=== PATIENT | female | born 1950 | race Caucasian/White ===

== ENCOUNTER 2022-11-28 12:57 | Emergency (ER) | payer MEDICARE, BC, SELFPAY ==
[2022-11-28 13:01] VITALS: BP 165/83; PULSE 77; RESP 14; TEMP 36.4; O2SAT 97; BMI 21.9
--- NOTE | 2022-11-28 13:10 | DI.US.S_ITS ---
PROCEDURE: US ABDOMEN LIMITED INDICATIONS: RUQ ABD PAIN TECHNIQUE: Real-time focused scanning was performed of the abdomen, with image documentation. COMPARISON: None. FINDINGS: There are small cysts in the liver. Liver echo pattern is unremarkable. Gallbladder is unremarkable with no stones or gallbladder wall thickening. No dilated ducts. Common duct measures 4 mm. Visualized portions the pancreas are unremarkable. IMPRESSION: Unremarkable right upper quadrant ultrasound with no gallstone disease noted. Dictated by: Raleigh Morris M.D. on 11/28/2022 at 13:58 Approved by: Raleigh Morris M.D. on 11/28/2022 at 13:59
[2022-11-28] MEDS: KETOROLAC 30 MG/ML VIAL 15 MG IV (13:13)
[2022-11-28 13:22] LABS: Add Manual Diff / Slide Review NO; Basophils Absolute Auto 0 /uL (0-100); Basophils Percent Auto 0.9 % (0-2); Eosinophils Absolute Auto 200 /uL (0-450); Eosinophils Percent Auto 4.1 % (2-4); Hematocrit 40.5 % (36-46); Hemoglobin 13.7 g/dL (12.0-16.0); Lymphocytes Absolute Auto 1500 /uL (1100-4500); Lymphocytes Percent Auto 28.3 % (25-40); Mean Corpuscular HGB Conc 33.9 % (30-36); Mean Corpuscular Hemoglobin 29.9 PG (26-34); Mean Corpuscular Volume 88.2 fL (80-100); Monocytes Absolute Auto 500 /uL (0-900); Monocytes Percent Auto 8.8 % (3-14); Neutrophils Absolute Auto 3100 /uL (1500-7000); Neutrophils Percent Auto 57.9 % (50-75); Platelet Count 193 X10^3/uL (150-400); Red Cell Distribution Width 13.9 % (11.6-14.8); White Blood Cell Count 5.4 X10^3/uL (4.5-11.0)
[2022-11-28 13:40] LABS: Alanine Aminotransferase 20 IU/L (<35); Albumin 4.4 g/dL (3.5-5.0); Albumin Globulin Ratio 1.4 (1.0-2.8); Alkaline Phosphatase 85 U/L (38-126); Aspartate Aminotransferase 30 IU/L (14-36); BUN Creatinine Ratio 20.7 (6-22); Bilirubin Total 0.6 mg/dL (0.2-1.3); Blood Urea Nitrogen 12 mg/dL (7-17); Calcium 8.8 mg/dL (8.4-10.2); Carbon Dioxide 25 mmol/L (22-32); Chloride 102 mmol/L (98-107); Estimated Glomerular Filt Rate > 60 mL/min (>60); Globulin 3.1 g/dL (1.7-4.1); Glucose 91 mg/dL (80-110); HEMOLYSIS < 15 (0-50); Lipase 79 U/L (23-300); Potassium 3.7 mmol/L (3.4-5.1); Sodium 136 mmol/L (137-145); Total Protein 7.5 g/dL (6.3-8.2)
--- NOTE | 2022-11-28 13:55 | PC.NURSE ---
Pt sitting up in chair, reports improvement in abdominal discomfort since medication.
[2022-11-28 14:09] VITALS: BP 120/60; PULSE 63; RESP 18; O2SAT 97
--- NOTE | 2022-11-28 14:52 | ED_ITS ---
HPI - Abdominal Pain <RADHA Jeffers - Last Filed: 11/28/22 15:28> General Chief Complaint: Abdominal Pain Stated Complaint: extreme pain hard to breathe Upper ABD Time Seen by Provider: 11/28/22 14:43 Source: patient Mode of arrival: Ambulatory History of Present Illness HPI narrative: This is a 72 year old female without significant medical history who presents to the emergency department complaining of sharp epigastric pain that started today at 12:30. States that she just sat down for lunch, states that she is an avid T drinker and has had some episodes of heartburn in the past. She says that she drinks black tea frequently, denies smoking, history of hypertension, hyperlipidemia, coronary artery disease or cardiac history of any kind. She denies history of blood clots. Denies shortness of breath or difficulty breathing. States that her epigastric pain is very sharp in has persisted after it came on suddenly at 12:30 today. She said she had some Pepto-Bismol thinking it was heartburn but it did not help. She denies stool changes, urinary changes, fever chills. She denies vomiting. Related Data Previous Rx's Medication Instructions Recorded omeprazole 20 mg capsule,delayed 20 mg PO BID #60 caps 11/28/22 release sucralfate 1 gram tablet (Carafate) 1 g PO BID PRN epigastric pain #40 11/28/22 tabs Allergies Allergy/AdvReac Type Severity Reaction Status Date / Time No Known Drug Allergies Allergy Verified 11/28/22 13:04 Review of Systems <RADHA Jeffers - Last Filed: 11/28/22 15:28> Review of Systems ROS Unobtainable: All systems reviewed & are unremarkable except as noted in HPI and below Patient History <RADHA Jeffers - Last Filed: 11/28/22 15:28> Social History Smoking Status: Never smoker Smoking Status: Never smoker alcohol intake frequency: 0-2 drinks per day Substance Use Type: does not use Exam <RADHA Jeffers - Last Filed: 11/28/22 15:28> Narrative Exam Narrative: Reviewed vitals signs and nursing notes. General: cooperative, in no acute distress, well groomed HEENT: symmetrical facial expressions, moist mucous membranes, neck is supple CV: regular rate and rhythm, warm extremities, S1-S2 without murmur Respiratory: Without abnormal breath sounds, normal work of breathing, without tachypnea, hypoxia. GI: abdomen soft, patient has mild tenderness to her epigastrium, no other tenderness to her abdomen or flank, abdomen is nondistended, without masses, rebound tenderness or CVA tenderness bilaterally. MSK: moves all extremities, neurovascularly intact, no weakness, normal tone Skin: brisk capillary refill, without rash or wound Neuro: normal speech and cognition, A&O x3, ambulatory, clear speech Initial Vital Signs Initial Vital Signs: Vital Signs Temperature 97.6 F 11/28/22 13:01 Pulse Rate 77 11/28/22 13:01 Respiratory Rate 14 11/28/22 13:01 Blood Pressure 165/83 H 11/28/22 13:01 Pulse Oximetry 97 11/28/22 13:01 Oxygen Delivery Method Room Air 11/28/22 13:01 <Rubi Chairez DO - Last Filed: 11/30/22 12:34> Initial Vital Signs Initial Vital Signs: Vital Signs Temperature 97.6 F 11/28/22 13:01 Pulse Rate 77 11/28/22 13:01 Respiratory Rate 14 11/28/22 13:01 Blood Pressure 165/83 H 11/28/22 13:01 Pulse Oximetry 97 11/28/22 13:01 Oxygen Delivery Method Room Air 11/28/22 13:01 Course <RADHA Jeffers - Last Filed: 11/28/22 15:28> Orders Ordered: Discontinued Medications Al Hydrox/Mg Hydrox/Simethicone 20 ml/ Lidocaine HCl 15 ml 0 ml PO NOW ONE Stop: 11/28/22 14:53 Last Admin: 11/28/22 15:07 Dose: 35 ml Documented By: AT Ketorolac Tromethamine (Ketorolac 30 Mg/Ml Vial) 15 mg IV NOW ONE Stop: 11/28/22 13:11 Last Admin: 11/28/22 13:13 Dose: 15 mg Documented By: CHERRY Ondansetron HCl (Ondansetron 4 Mg/2 Ml Inj) 4 mg IV NOW PRN PRN Reason: Nausea And Vomiting Pantoprazole Sodium (Pantoprazole Dr 20 Mg Tablet) 20 mg PO NOW ONE Stop: 11/28/22 14:55 Last Admin: 11/28/22 15:07 Dose: 20 mg Documented By: AT Vital Signs Vital signs: Vital Signs - 8 hr 11/28/22 13:01 11/28/22 14:09 Temperature 97.6 F Pulse Rate 77 63 Respiratory Rate 14 18 Blood Pressure 165/83 H 120/60 Pulse Oximetry 97 97 Oxygen Delivery Method Room Air Room Air <Rubi Chairez DO - Last Filed: 11/30/22 12:34> Orders Ordered: Discontinued Medications Al Hydrox/Mg Hydrox/Simethicone 20 ml/ Lidocaine HCl 15 ml 0 ml PO NOW ONE Stop: 11/28/22 14:53 Last Admin: 11/28/22 15:07 Dose: 35 ml Documented By: AT Ketorolac Tromethamine (Ketorolac 30 Mg/Ml Vial) 15 mg IV NOW ONE Stop: 11/28/22 13:11 Last Admin: 11/28/22 13:13 Dose: 15 mg Documented By: CHERRY Ondansetron HCl (Ondansetron 4 Mg/2 Ml Inj) 4 mg IV NOW PRN PRN Reason: Nausea And Vomiting Pantoprazole Sodium (Pantoprazole Dr 20 Mg Tablet) 20 mg PO NOW ONE Stop: 11/28/22 14:55 Last Admin: 11/28/22 15:07 Dose: 20 mg Documented By: AT Vital Signs Vital signs: Vital Signs - 8 hr 11/28/22 13:01 11/28/22 14:09 Temperature 97.6 F Pulse Rate 77 63 Respiratory Rate 14 18 Blood Pressure 165/83 H 120/60 Pulse Oximetry 97 97 Oxygen Delivery Method Room Air Room Air MDM - Abdominal Pain <RADHA Jeffers - Last Filed: 11/28/22 15:28> Lab Data 11/28/22 13:10 11/28/22 13:10 Labs: Lab Results 11/28/22 11/28/22 11/28/22 Range/Units 13:10 13:10 13:10 WBC 5.4 (4.5-11.0) X10^3/uL RBC 4.60 (4.0-5.2) X10^6/uL Hgb 13.7 (12.0-16.0) g/dL Hct 40.5 (36-46) % MCV 88.2 (80-100) fL MCH 29.9 (26-34) PG MCHC 33.9 (30-36) % RDW 13.9 (11.6-14.8) % Plt Count 193 (150-400) X10^3/uL Neut % (Auto) 57.9 (50-75) % Lymph % (Auto) 28.3 (25-40) % [place] % (Auto) 8.8 (3-14) % Eos % (Auto) 4.1 H (2-4) % Baso % (Auto) 0.9 (0-2) % Neut # (Auto) 3100 (7945-3135) /uL Lymph # (Auto) 1500 (4338-5535) /uL [place] # (Auto) 500 (0-900) /uL Eos # (Auto) 200 (0-450) /uL Baso # (Auto) 0 (0-100) /uL Sodium 136 L (137-145) mmol/L Potassium 3.7 (3.4-5.1) mmol/L Chloride 102 (98-107) mmol/L Carbon Dioxide 25 (22-32) mmol/L BUN 12 (7-17) mg/dL Creatinine 0.58 (0.52-1.04) mg/dL Estimated GFR > 60 (>60) mL/min BUN/Creatinine Ratio 20.7 (6-22) Glucose 91 (80-110) mg/dL Calcium 8.8 (8.4-10.2) mg/dL Total Bilirubin 0.6 (0.2-1.3) mg/dL AST 30 (14-36) IU/L ALT 20 (<35) IU/L Alkaline Phosphatase 85 (38-126) U/L Total Creatine Kinase 137 H (30-135) U/L CK-MB (CK-2) 2.17 (<2.37) ng/mL CK-MB (CK-2) Rel Index 1.6 (1.5-5.0) % Troponin I < 0.012 (0.01-0.034) ng/mL Total Protein 7.5 (6.3-8.2) g/dL Albumin 4.4 (3.5-5.0) g/dL Globulin 3.1 (1.7-4.1) g/dL Albumin/Globulin Ratio 1.4 (1.0-2.8) Lipase 79 (23-300) U/L Point of care testing: Urine Dip Bedside Urine Glucose Negative Bedside Urine Bilirubin - Negative Bedside Urine Ketone + 15 Urine Specific [place] 1.020 Bedside Urine Occult Blood - Negative Bedside Urine pH 6.0 Bedside Urine Protein - Negative Bedside Urine Urobilinogen - Negative Bedside Urine Nitrite - Negative Bedside Urine Leukocytes - Negative Esterase Imaging Data US - abdomen: Radiologist's Impression: PROCEDURE: US ABDOMEN LIMITED ? INDICATIONS:? RUQ ABD PAIN ? TECHNIQUE:? Real-time focused scanning was performed of the abdomen, with image documentation.? ? COMPARISON:? None. ? FINDINGS:? There are small cysts in the liver.? Liver echo pattern is unremarkable. ? Gallbladder is unremarkable with no stones or gallbladder wall thickening. ? No dilated ducts.? Common duct measures 4 mm. ? Visualized portions the pancreas are unremarkable. ? IMPRESSION:? Unremarkable right upper quadrant ultrasound with no gallstone disease noted. ? ? Dictated by: Raleigh Morris M.D. on 11/28/2022 at 13:58 ? ? Approved by: Raleigh Morris M.D. on 11/28/2022 at 13:59 ? ECG Data Interpretation: EKG independently reviewed by myself and Dr. Chairez at [1516] reveals normal sinus rhythm at 62 bpm with regular axis and intervals. No STEMI, ST segment changes, arrhythmia, or acute ischemic changes. No EKGs on record compare to [facility] Narrative Medical decision making narrative: Chief Complaint: Epigastric pain Independent historian: Patient Differential diagnoses include but are not limited to: Acute viral process, gastritis, gastric ulcer, biliary disease, gastroenteritis, GERD, bowel obstruction, perforated viscus, appendicitis, colitis, diverticulitis, IBD/IBS, intestinal ischemia, obstructive uropathy, acute cystitis, pyelonephritis, peptic ulcer disease Doubt atypical ACS. No peritoneal signs on abdominal exam. Patient remains p.o. tolerant. Serial abdominal exam without increase in abdominal pain. Extensive conversation about ER return precautions and need for close follow-up. I have independently reviewed the patient's vital signs and nursing notes as well as prior records if available. Pertinent lab findings reviewed: Overall lab work is unremarkable, no leukocytosis or anemia, no electrolyte abnormalities, normal creatinine, no elevation to liver enzymes or lipase, no elevation to troponin, total CK is mildly elevated at 137 Pertinent Imaging reviewed: Abdominal ultrasound ordered prior to seeing the patient on nursing initiated orders is negative for acute abnormality, common bile duct measures 4 mm. Clinical decision rules or scores evaluated: Patient's heart score is low risk due to no comorbidities, points only for age Course of care: Patient's exam and history are significant for what sounds like GERD/reflux symptomatology. She is nontoxic appearing, no abdominal tenderness to palpation other than in her epigastrium, has not had any episodes of emesis, no stool changes, no urinary changes. This is most likely gastritis or gastric ulcer without bleeding. She drinks black tea frequently and has not treated her symptoms with omeprazole or Tums in the past Patient states that the pain had subsided already from the Toradol that was given to her on the nursing initiated order set. Social considerations that may affect disposition: none Questions are addressed and there is agreement with the plan and for follow-up. Patient is appropriate for outpatient management. MIPS: This encounter doesn't have any diagnosis' associated with MIPS criteria. <Rubi Chairez, DO - Last Filed: 11/30/22 12:34> Lab Data Labs: Lab Results 11/28/22 11/28/22 11/28/22 Range/Units 13:10 13:10 13:10 WBC 5.4 (4.5-11.0) X10^3/uL RBC 4.60 (4.0-5.2) X10^6/uL Hgb 13.7 (12.0-16.0) g/dL Hct 40.5 (36-46) % MCV 88.2 (80-100) fL MCH 29.9 (26-34) PG MCHC 33.9 (30-36) % RDW 13.9 (11.6-14.8) % Plt Count 193 (150-400) X10^3/uL Neut % (Auto) 57.9 (50-75) % Lymph % (Auto) 28.3 (25-40) % [place] % (Auto) 8.8 (3-14) % Eos % (Auto) 4.1 H (2-4) % Baso % (Auto) 0.9 (0-2) % Neut # (Auto) 3100 (9740-3700) /uL Lymph # (Auto) 1500 (8714-0633) /uL [place] # (Auto) 500 (0-900) /uL Eos # (Auto) 200 (0-450) /uL Baso # (Auto) 0 (0-100) /uL Sodium 136 L (137-145) mmol/L Potassium 3.7 (3.4-5.1) mmol/L Chloride 102 (98-107) mmol/L Carbon Dioxide 25 (22-32) mmol/L BUN 12 (7-17) mg/dL Creatinine 0.58 (0.52-1.04) mg/dL Estimated GFR > 60 (>60) mL/min BUN/Creatinine Ratio 20.7 (6-22) Glucose 91 (80-110) mg/dL Calcium 8.8 (8.4-10.2) mg/dL Total Bilirubin 0.6 (0.2-1.3) mg/dL AST 30 (14-36) IU/L ALT 20 (<35) IU/L Alkaline Phosphatase 85 (38-126) U/L Total Creatine Kinase 137 H (30-135) U/L CK-MB (CK-2) 2.17 (<2.37) ng/mL CK-MB (CK-2) Rel Index 1.6 (1.5-5.0) % Troponin I < 0.012 (0.01-0.034) ng/mL Total Protein 7.5 (6.3-8.2) g/dL Albumin 4.4 (3.5-5.0) g/dL Globulin 3.1 (1.7-4.1) g/dL Albumin/Globulin Ratio 1.4 (1.0-2.8) Lipase 79 (23-300) U/L Point of care testing: Urine Dip Bedside Urine Glucose Negative Bedside Urine Bilirubin - Negative Bedside Urine Ketone + 15 Urine Specific [place] 1.020 Bedside Urine Occult Blood - Negative Bedside Urine pH 6.0 Bedside Urine Protein - Negative Bedside Urine Urobilinogen - Negative Bedside Urine Nitrite - Negative Bedside Urine Leukocytes - Negative Esterase Discharge Plan Departure Patient Disposition: Home Clinical Impression: Epigastric abdominal pain Instructions: Heartburn -- Overview, GERD Diet Activity Restrictions/Additional Instructions: *You have been diagnosed with epigastric pain which is likely related to heartburn or GERD. Please start taking Prilosec 20 mg daily or twice a day for least 2 weeks to see if your symptoms improve afterwards. Please coat your stomach with food and or Carafate as needed throughout the day. Minimize your tea drinking as this can cause worsening pain in the interim. Avoid ibuprofen. Please take Tylenol as needed for your pain, Pepto-Bismol can be helpful for codeine the stomach as well. Eat small frequent meals throughout the day, schedule follow-up with your primary care provider to talk about if this has gotten better not and if not, please ask for referral to Gastroenterology for upper endoscopy. Thank you for your patience today, I hope that you start feeling better soon. Your lab work overall is reassuring, this does not appear to have any organ side effects or strain on your heart. Your cardiac workup is negative for abnormality today. It looks like you may have been a little dehydrated. Please drink plenty of water, I wish you the best. :) *What to do: *Please continue to take your regular medications as directed. [x ] New medication prescriptions sent to your pharmacy: [[facility]] [ ] New medication written as a paper prescription [ ] No new medications given *Please follow up with your primary care provider in 2-3 days, call for an appointment. Let them know you were seen in the Emergency Department and that we asked that you be seen for follow-up. We will electronically transmit a record of today's note if your PCP is in our system *If you do not have a primary care provider please contact [phone] to establish care with one of the [facility] primary care providers. *Return to Emergency Department if you should have any new, worsening, or concerning symptoms, such as [fever greater than 101F, chills, worsening pain, persistent vomiting or other bothersome symptoms]. Prescriptions: New omeprazole 20 mg capsule,delayed release(DR/EC) 20 mg PO BID Qty: 60 0RF sucralfate [Carafate] 1 gram tablet 1 g PO BID PRN (Reason: epigastric pain) Qty: 40 0RF Referrals: Abhijit Stewart ARNP [Primary Care Provider] - Stand Alone Forms: Patient Portal/API <Rubi Chairez DO - Last Filed: 11/30/22 12:34> Cosign ED Attending Milagrosature Attestation: I was immediately available in the department for consultation. Supervised by Rubi Chairez DO
--- NOTE | 2022-11-28 14:53 | DI.RAD.S_ITS ---
PROCEDURE: XR CHEST 1V INDICATIONS: epigastric pain TECHNIQUE: One view of the chest was acquired. COMPARISON: [facility], CR, CHEST 2VW, 01/31/2013, 11:08. FINDINGS: Surgical changes and devices: None. Lungs and pleura: Lungs are clear. No pleural effusions or pneumothorax. Mediastinum: Mediastinal contours appear normal except for presence of a moderately large hiatal hernia behind the heart, not present on chest plain film imaging 01/31/13. Heart size is normal. Bones and chest wall: No suspicious bony lesions. Overlying soft tissues appear unremarkable. IMPRESSION: New finding of a moderately large hiatal hernia behind the heart which is a likely etiology for current symptoms. This finding was absent on a prior chest plain film from January of 2013. Dictated by: John Paul Clayton M.D. on 11/28/2022 at 15:15 Approved by: John Paul Clayton M.D. on 11/28/2022 at 15:24
[2022-11-28 15:05] LABS: Creatine Kinase 137 U/L (30-135)
[2022-11-28] MEDS: MAG HYDROX/ALUMINUM/SIMETH SUS 20 ML, LIDOCAINE VISCOUS 2% 15 ML PO (15:07)
[2022-11-28] MEDS: PANTOPRAZOLE DR 20 MG TABLET PO (15:07)
[2022-11-28 15:18] LABS: Troponin I < 0.012 ng/mL (0.01-0.034)
[2022-11-28 15:21] LABS: CKMB % Relative Index 1.6 % (1.5-5.0); Creatine Kinase MB 2.17 ng/mL (<2.37)
[2022-11-28 15:33] VITALS: BP 150/67; PULSE 59; O2SAT 99
== END 2022-11-28 15:34 | disposition home or self-care (01) ==
PROVIDERS: Emergency Medicine; Emergency Provider Nurse Practitioner Critical Care Medicine; PCP Registered Nurse
DX: R10.13 Epigastric pain (principal)
CPT/HCPCS: 36415; 71045; 76705; 80053; 81003; 82550; 82553; 83690; 84484; 85025; 93005; 93010; 96374; 99284; J1885

== ENCOUNTER 2023-05-17 19:27 | Emergency (ER) | payer MEDICARE, BC, SELFPAY ==
[2023-05-17 19:29] VITALS: BP 169/75; PULSE 84; RESP 18; TEMP 36.6; O2SAT 100; BMI 21.6
--- NOTE | 2023-05-17 20:40 | PC.NURSE ---
spoke with Dr Cerda regarding pt's care, as per discussion pt was given some saige filiberto to drink, pt was able to drink the saige filiberto, swallowed without difficulty, no n/v noted
--- NOTE | 2023-05-17 21:46 | ED_ITS ---
HPI - Abdominal Pain General Chief Complaint: Abdominal Pain Stated Complaint: Esophageal Spasm, PAIN Time Seen by Provider: 05/17/23 21:33 Source: patient Mode of arrival: Ambulatory History of Present Illness HPI narrative: Patient 73-year-old female history of acid reflux, esophageal spasm presenting today with epigastric pain. She reports it started suddenly after eating. She denies any difficulty swallowing vomiting or nausea. She is no chest pain or shortness of breath. She tried drinking some saige filiberto here she was able to keep it down but reports that her pain got worse. It has now subsided. She previously had something similar back in November she followed up with her primary determined it may have been an esophageal spasm. She is not yet had an EGD. Overall she is better no fever chills or any other symptoms. Related Data Home Medications Medication Instructions Recorded Confirmed Gaviscon 2 tab PRN Pain (Scale Score 4-6) 05/17/23 Pepto-Bismol 1 tbsp PRN Abdominal Discomfort 05/17/23 Previous Rx's Medication Instructions Recorded sucralfate 1 gram tablet (Carafate) 1 g PO BID PRN epigastric pain #40 11/28/22 tabs Allergies Allergy/AdvReac Type Severity Reaction Status Date / Time No Known Drug Allergies Allergy Verified 11/28/22 13:04 Review of Systems Review of Systems ROS Unobtainable: All systems reviewed & are unremarkable except as noted in HPI and below Patient History Social History Smoking Status: Never smoker Smoking Status: Never smoker alcohol intake frequency: 0-2 drinks per day Substance Use Type: does not use Exam Initial Vital Signs Initial Vital Signs: Vital Signs Temperature 97.9 F 05/17/23 19:29 Pulse Rate 84 05/17/23 19:29 Respiratory Rate 18 05/17/23 19:29 Blood Pressure 169/75 H 05/17/23 19:29 Pulse Oximetry 100 05/17/23 19:29 Oxygen Delivery Method Room Air 05/17/23 19:29 GENERAL: Alert well-appearing 73-year-old female and in no acute distress. HEENT: Head atraumatic,EOMI, pupils reactive, face symmetric, moist mucous membranes CARDIOVASCULAR: Regular rate and rhythm without murmurs, rubs or gallops. RESPIRATORY: Breath sounds equal bilaterally, no wheezes rales or rhonchi. ABDOMEN: Soft, minimal epigastric pain negative Calero sign no right upper quadrant pain EXTREMITIES: Normal range of motion, no clubbing or edema. Neurovascularly intact NEUROLOGICAL: Alert and oriented x4. SKIN: Warm, dry, no laceration, no petechiae, no rashes or lesions. Scores HEART Score Heart Score history: Slightly Suspicious Heart Score EKG: Normal Heart Score Age: > or = 65 years old Heart Score risk factors: No known risk factors Heart Score troponin: < or = to normal limit Heart Score Total: 2 Course Orders Ordered: ED Orders 05/17/23 21:33 EKG-12 Lead Stat 05/17/23 22:21 Complete Blood Count AUTO DIFF Stat Comprehensive Metabolic Panel Stat Lipase Stat Troponin & CK Cardiac Panel Stat Vital Signs Vital signs: Vital Signs - 8 hr 05/17/23 19:29 05/17/23 21:55 05/17/23 22:37 Temperature 97.9 F Pulse Rate 84 74 65 Respiratory Rate 18 18 13 Blood Pressure 169/75 H 137/75 Pulse Oximetry 100 96 Oxygen Delivery Method Room Air Room Air 05/17/23 23:00 Temperature Pulse Rate 66 Respiratory Rate Blood Pressure Pulse Oximetry Oxygen Delivery Method MDM - Abdominal Pain Lab Data 05/17/23 22:21 05/17/23 22:21 Labs: Lab Results 05/17/23 05/17/23 Range/Units 22:21 22:21 WBC 7.2 (4.5-11.0) X10^3/uL RBC 4.36 (4.0-5.2) X10^6/uL Hgb 13.4 (12.0-16.0) g/dL Hct 38.6 (36-46) % MCV 88.4 (80-100) fL MCH 30.7 (26-34) PG MCHC 34.7 (30-36) % RDW 13.8 (11.6-14.8) % Plt Count 218 (150-400) X10^3/uL Neut % (Auto) 72.9 (50-75) % Lymph % (Auto) 17.6 L (25-40) % [place] % (Auto) 6.3 (3-14) % Eos % (Auto) 2.6 (2-4) % Baso % (Auto) 0.6 (0-2) % Neut # (Auto) 5200 (1563-1547) /uL Lymph # (Auto) 1300 (4027-4923) /uL [place] # (Auto) 500 (0-900) /uL Eos # (Auto) 200 (0-450) /uL Baso # (Auto) 0 (0-100) /uL Sodium 135 L (137-145) mmol/L Potassium 3.5 (3.4-5.1) mmol/L Chloride 98 (98-107) mmol/L Carbon Dioxide 27 (22-32) mmol/L BUN 7 (7-17) mg/dL Creatinine 0.57 (0.52-1.04) mg/dL Estimated GFR > 60 (>60) mL/min BUN/Creatinine Ratio 12.3 (6-22) Glucose 128 H (80-110) mg/dL Calcium 8.8 (8.4-10.2) mg/dL Total Bilirubin 0.4 (0.2-1.3) mg/dL AST 28 (14-36) IU/L ALT 18 (<35) IU/L Alkaline Phosphatase 79 (38-126) U/L Total Creatine Kinase 97 (30-135) U/L Troponin I < 0.012 (0.01-0.034) ng/mL Total Protein 7.5 (6.3-8.2) g/dL Albumin 4.3 (3.5-5.0) g/dL Globulin 3.2 (1.7-4.1) g/dL Albumin/Globulin Ratio 1.3 (1.0-2.8) Lipase 79 (23-300) U/L ECG Data Interpretation: Sinus rhythm rate 69 CA interval 152 QRS [address] changes T-wave inversion noted in lead 3 similar to previous EKG in November 2022 MDM Narrative Medical decision making narrative: Patient is 73-year-old female presents today with epigastric pain started after eating she reports esophageal spasm however does not quite present like an esophageal spasm. She is no difficulty swallowing no vomiting denies any chest pain. Previously she had abdominal workup and it was negative. She is hesitant to do it again but ultimately agrees to at least blood work. She wanted minimal amount done refused cardiac monitoring. Not requiring anything for pain in the ED. She was given saige filiberto which she kept down but reports that it pain. Possible ulcer versus coronary artery disease versus cholelithiasis as cystitis. She previously did have an ultrasound in November which was negative. Today blood work has been reviewed no significant leukocytosis or anemia, troponin negative no elevated troponin liver enzymes or lipase. At this time she wants no further workup and would like to go home. Recommend outpatient testing such as EGD and cardiac testing. She is a low heart score no significant risk factors. Her pain is worse with liquids not consistent with CAD. No evidence of pancreatitis on blood work. Discharge Plan Departure Patient Disposition: Home Clinical Impression: Atypical chest pain Instructions: DI for Atypical Chest Pain Activity Restrictions/Additional Instructions: *You have been diagnosed with atypical chest pain *What to do: At this time it is unclear exactly what is causing her problems it maybe esophageal spasm however I do recommend that you have cardiac testing and stress test along with a echocardiogram and EGD done possibly EGD with your PCP *Continue to take medications as directed *Follow up with your primary care provider in 2-3 days or call [phone] *Return to ER if you should have increasing pain difficulty swallowing chest pain shortness of or any new, worsening or concerning symptoms Prescriptions: No Action sucralfate [Carafate] 1 gram tablet 1 g PO BID PRN (Reason: epigastric pain) Qty: 40 0RF Gaviscon 2 tab PRN (Reason: Pain (Scale Score 4-6)) Pepto-Bismol 1 tbsp PRN (Reason: Abdominal Discomfort) Referrals: Abhijit Stewart ARNP [Primary Care Provider] - Stand Alone Forms: Patient Portal/API
[2023-05-17 21:55] VITALS: BP 137/75; PULSE 74; RESP 18; O2SAT 96
--- NOTE | 2023-05-17 22:16 | PC.NURSE ---
INVESTIGATOR VICE note: 2218 Patient refused to be put on cardiac monitoring and vitals monitoring states she has already gotten an EKG and does not need to do a cardiac monitoring. Pt also said that the doctor has not talked to her about putting her on it and was only told she is only getting a lab draw which was the only thing she will agree to at the moment.
[2023-05-17 22:31] LABS: Add Manual Diff / Slide Review NO; Basophils Absolute Auto 0 /uL (0-100); Basophils Percent Auto 0.6 % (0-2); Eosinophils Absolute Auto 200 /uL (0-450); Eosinophils Percent Auto 2.6 % (2-4); Hematocrit 38.6 % (36-46); Hemoglobin 13.4 g/dL (12.0-16.0); Lymphocytes Absolute Auto 1300 /uL (1100-4500); Lymphocytes Percent Auto 17.6 % (25-40); Mean Corpuscular HGB Conc 34.7 % (30-36); Mean Corpuscular Hemoglobin 30.7 PG (26-34); Mean Corpuscular Volume 88.4 fL (80-100); Monocytes Absolute Auto 500 /uL (0-900); Monocytes Percent Auto 6.3 % (3-14); Neutrophils Absolute Auto 5200 /uL (1500-7000); Neutrophils Percent Auto 72.9 % (50-75); Platelet Count 218 X10^3/uL (150-400); Red Blood Cell Count 4.36 X10^6/uL (4.0-5.2); Red Cell Distribution Width 13.8 % (11.6-14.8); White Blood Cell Count 7.2 X10^3/uL (4.5-11.0)
[2023-05-17 22:37] VITALS: PULSE 65; RESP 13
[2023-05-17 22:40] LABS: Alanine Aminotransferase 18 IU/L (<35); Albumin 4.3 g/dL (3.5-5.0); Albumin Globulin Ratio 1.3 (1.0-2.8); Alkaline Phosphatase 79 U/L (38-126); Aspartate Aminotransferase 28 IU/L (14-36); BUN Creatinine Ratio 12.3 (6-22); Bilirubin Total 0.4 mg/dL (0.2-1.3); Blood Urea Nitrogen 7 mg/dL (7-17); Calcium 8.8 mg/dL (8.4-10.2); Carbon Dioxide 27 mmol/L (22-32); Chloride 98 mmol/L (98-107); Creatine Kinase 97 U/L (30-135); Estimated Glomerular Filt Rate > 60 mL/min (>60); Globulin 3.2 g/dL (1.7-4.1); Glucose 128 mg/dL (80-110); HEMOLYSIS < 15 (0-50); Lipase 79 U/L (23-300); Potassium 3.5 mmol/L (3.4-5.1); Sodium 135 mmol/L (137-145); Total Protein 7.5 g/dL (6.3-8.2)
--- NOTE | 2023-05-17 22:40 | PC.NURSE ---
Pt education given regarding continuous cardiac monitoring. Pt agrees to continuous cardiac monitoring but declines continuous pulse oximetry. Pt placed on continuous cardiac monitoring.
[2023-05-17 22:51] LABS: Troponin I < 0.012 ng/mL (0.01-0.034)
[2023-05-17 23:00] VITALS: PULSE 66
== END 2023-05-17 23:09 | disposition home or self-care (01) ==
PROVIDERS: Emergency Provider Emergency Medicine; PCP Registered Nurse
DX: R07.89 Other chest pain (principal)
CPT/HCPCS: 36415; 80053; 82550; 83690; 84484; 85025; 93005; 93010; 99283; 99284